=== PATIENT | female | born 1990 | race Caucasian/White ===

== ENCOUNTER 2016-11-21 09:15 | Inpatient (IN) ==
[2016-11-21] MEDS ORDERED: PEPCID IV PRN (09:24)
[2016-11-21] MEDS ORDERED: KEFZOL 1 GM/D5W 1 GM/50 ML IVPB IV PRN (09:24)
[2016-11-21] MEDS ORDERED: AMPICILLIN 2 GM/NS 2 GM/100 ML IVPB IV ONE (09:24)
[2016-11-21] MEDS ORDERED: ZOFRAN IV PRN (09:24)
[2016-11-21] MEDS ORDERED: PEPCID PO ONE (09:24)
[2016-11-21] MEDS ORDERED: REGLAN PO ONE (09:24)
[2016-11-21] MEDS ORDERED: PEPCID PO PRN (09:24)
[2016-11-21] MEDS ORDERED: PITOCIN 30 UNITS/LR 30 UNITS/500 ML IV.SOLN IV SCH (09:24)
[2016-11-21] MEDS ORDERED: STADOL IV PRN ×3 (09:24→19:27)
[2016-11-21] MEDS ORDERED: SODIUM CHLORIDE 0.9% INJ SCH (09:30)
[2016-11-21] MEDS: LR 1,000 ML IV SCH (09:45)
[2016-11-21 10:03] LABS: MANUAL DIFF NEEDED? NO
[2016-11-21 10:04] LABS: BASO% 0.2 % (0.0-0.8); EOS# 0.01 X1000 (0.0-0.7); EOS% 0.1 % (0.0-10.0); HEMATOCRIT 32.9 % (37.0-47.0); HEMOGLOBIN 11.1 g/dL (12.0-16.0); IMM GRAN% 0.8 % (0.0-0.5); LYMPH# 1.42 X1000 (1.2-3.4); LYMPH% 11.5 % (20.5-51.1); MCH 32.4 PG (27-31); MCHC 33.7 g/dL (33-37); MCV 95.9 FL (81-99); MONO# 0.74 X1000 (0.11-0.59); NEUT% 81.4 % (42.2-75.2); PLT 260 X1000 (130-400); RBC 3.43 XMIL (4.2-5.4)
[2016-11-21] MEDS: TYLENOL PO PRN ×3 (10:26→20:13)
[2016-11-21] MEDS ORDERED: VALIUM IV PRN (10:40)
[2016-11-21] MEDS ORDERED: KEPPRA PO SCH (10:45)
[2016-11-21] MEDS: LAMICTAL PO SCH ×2 (11:43→21:33)
[2016-11-21] MEDS: VALTREX PO SCH ×2 (11:44→21:33)
[2016-11-21] MEDS: KEPPRA 1,000 MG/NS 1,000 MG/100 ML IVPB IV SCH ×2 (11:57→23:33)
[2016-11-21 12:00] LABS: AGAP 18; ALBUMIN 3.2 g/dL (3.5-5.0); ALKALINE PHOSPHATASE 133 U/L (32-104); BUN 8 mg/dL (8-22); CALCIUM 8.5 mg/dL (8.8-10.2); CHLORIDE 100 mmol/L (98-107); COSMO 267; GOT 20 U/L (10-30); GPT 10 U/L (10-36); POTASSIUM 3.5 mmol/L (3.5-5.1); SODIUM 134 mmol/L (136-145); TCO2 16 mmol/L (25-35); TOTAL PROTEIN 6.6 g/dL (6.3-8.3)
[2016-11-21] MEDS: AMPICILLIN 1 GM/NS 1 GM/50 ML IVPB IV SCH ×2 (17:00→21:33)
[2016-11-21] MEDS ORDERED: AMBIEN PO PRN (19:27)
[2016-11-21] MEDS ORDERED: BRETHINE SUBQ PRN (19:27)
[2016-11-21] MEDS ORDERED: CYTOTEC PO ONE (23:00)
[2016-11-22 00:15] LABS: URINE SOURCE VOIDED
[2016-11-22 00:32] LABS: BILIRUBIN URINE NEGATIVE (NEGATIVE); BLOOD URINE NEGATIVE (NEGATIVE); CLARITY CLEAR (CLEAR); COLOR YELLOW; GLUCOSE URINE NEGATIVE (NEGATIVE); LEUKOCYTES URINE 1+ (NEGATIVE); NITRITE URINE NEGATIVE (NEGATIVE); PROTEIN URINE NEGATIVE (NEGATIVE); SP GRAVITY URINE 1.005; UR AMPHETAMINES QUAL NONE DETECTED (NONE DETECT); UR BARBITUATES QUAL NONE DETECTED (NONE DETECT); UR BENZODIAZEPIN QUAL PRESUMPTIVE POSITIVE (NONE DETECT); UR CANNABINOIDS QUAL NONE DETECTED (NONE DETECT); UR COCAINE QUAL NONE DETECTED (NONE DETECT); UR MDMA QUAL NONE DETECTED (NONE DETECT); UR METHADONE QUAL NONE DETECTED (NONE DETECT); UR METHAMPHETAMINE QUAL NONE DETECTED (NONE DETECT); UR OPIATES QUAL NONE DETECTED (NONE DETECT); UR OXYCODONE QUAL NONE DETECTED (NONE DETECT); UR PCP QUAL NONE DETECTED (NONE DETECT); UR TCA QUAL NONE DETECTED (NONE DETECT); UROBILINOGEN URINE NORMAL
[2016-11-22] MEDS: AMPICILLIN 1 GM/NS 1 GM/50 ML IVPB IV SCH ×3 (00:54→09:00)
[2016-11-22] MEDS ORDERED: CYTOTEC PO SCH (03:00)
[2016-11-22] MEDS: TYLENOL PO PRN (06:21)
[2016-11-22] MEDS: LR 1,000 ML IV SCH (08:00)
[2016-11-22] MEDS: LAMICTAL PO SCH ×2 (09:47→20:57)
[2016-11-22] MEDS: VALTREX PO SCH (09:47)
[2016-11-22] MEDS ORDERED: FENTANYL-BUPIV-NS 2 MCG-0.1% 200 ML EPIDURAL PRN (10:21)
[2016-11-22] MEDS ORDERED: NAROPIN 0.2% ONE (12:06)
[2016-11-22] MEDS: KEPPRA 1,000 MG/NS 1,000 MG/100 ML IVPB IV SCH (12:56)
[2016-11-22] MEDS ORDERED: BENADRYL IV PRN (13:57)
[2016-11-22] MEDS ORDERED: BOOSTRIX VACCINE IM ONE (13:57)
[2016-11-22] MEDS ORDERED: MINERAL OIL PO PRN (13:57)
[2016-11-22] MEDS ORDERED: HYDROXYZINE IM PRN (13:57)
[2016-11-22] MEDS ORDERED: XYLOCAINE-MPF 1% INJ PRN (13:57)
[2016-11-22] MEDS ORDERED: PITOCIN 30 UNITS/LR 30 UNITS/500 ML IV.SOLN IV ONE (13:57)
[2016-11-22] MEDS ORDERED: PITOCIN 20 UNITS/LR 20 UNITS/1,000 ML IV.SOLN IV SCH (13:57)
[2016-11-22] MEDS ORDERED: PITOCIN IM PRN (13:57)
[2016-11-22] MEDS ORDERED: HYDROXYZINE PO PRN (13:57)
[2016-11-22] MEDS ORDERED: CYTOTEC PO PRN (13:57)
[2016-11-22] MEDS ORDERED: BENADRYL PO PRN (13:57)
[2016-11-22] MEDS ORDERED: M-M-R II VACCINE SUBQ ONE (13:57)
[2016-11-22] MEDS ORDERED: PERI MEDS (DERMOPLAST/NUPERCAINAL/TUCKS) MISC PRN (13:57)
--- NOTE | 2016-11-22 14:35 | OPERATIVE NOTE ---
PROCEDURE DATE: 11/22/2016 PREDELIVERY DIAGNOSES: 1. Intrauterine at 38 and 5. 2. Seizure disorder. 3. History of herpes simplex virus. 4. History of chlamydia during . 5. 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 6. Seizure disorder. 7. For labor augmentation. POST DELIVERY DIAGNOSES: 1. Intrauterine at 38 and 5. 2. Seizure disorder. 3. History of herpes simplex virus. 4. History of chlamydia during . 5. 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 6. Seizure disorder. 7. For labor augmentation. 8. Nuchal cord x1. PROCEDURE: Vaginal delivery. PHYSICIAN: Bobby. ANESTHESIA: Epidural with Dr. Tracey. FINDINGS: Viable female infant. Do not have weight or Apgars at this time. ESTIMATED BLOOD LOSS: 100 mL. COMPLICATIONS: The no lacerations or tears. COUNTS: All counts correct. Ms. Rinaldi is a 26-year-old at 38 and 5, with the above diagnoses, who was sent upstairs for labor augmentation after having seizures in the office. She was continued on her antiseizure medication and did well overnight with a dose of Cytotec. She is also GBS positive so she was started on antibiotics. This morning she was artificially ruptured, placed on Pitocin, received epidural anesthesia and made good progress until complete. Began pushing, soon after crowned, at which point the bed was broken down and she was prepped and draped. It should be noted she had no vaginal lesions of herpes noted. She pushes quickly, delivers a viable male , occiput anterior over an intact perineum. Once head delivered, shoulders and rest of the body delivered without difficulty and infant was placed on mother's abdomen. Cord was doubly clamped and cut and care of infant was taken over by nursery personnel. Cord blood was obtained and it was noted to be a 3-vessel cord. Then gentle traction on the cord resulted in delivery of the placenta after approximately 2 minutes. It was inspected and found to be intact and it was discarded. Inspection of the perineum and vagina did not reveal any lacerations, tears. There was no foreign material or blood clots. All counts were correct. Estimated blood loss 100 mL. Expect routine . cc: MD Cesar Chen MD
[2016-11-22] MEDS: NORCO-10 PO PRN (16:37)
[2016-11-22] MEDS: MOTRIN PO PRN ×2 (16:38→23:51)
[2016-11-22] MEDS: NORCO-5 PO PRN ×2 (20:12→23:51)
[2016-11-22] MEDS: PERICOLACE PO SCH (20:57)
[2016-11-22] MEDS: KEPPRA PO SCH (20:58)
[2016-11-23] MEDS: AMBIEN PO PRN (00:47)
[2016-11-23 06:55] LABS: MANUAL DIFF NEEDED? NO
[2016-11-23 08:04] LABS: BASO% 0.2 % (0.0-0.8); EOS# 0.02 X1000 (0.0-0.7); EOS% 0.2 % (0.0-10.0); HEMOGLOBIN 8.4 g/dL (12.0-16.0); IMM GRAN# 0.05 X1000 (0.0-0.04); IMM GRAN% 0.5 % (0.0-0.5); LYMPH# 2.38 X1000 (1.2-3.4); LYMPH% 22.8 % (20.5-51.1); MCH 31.9 PG (27-31); MCHC 32.3 g/dL (33-37); MCV 98.9 FL (81-99); MONO# 0.72 X1000 (0.11-0.59); MONO% 6.9 % (1.7-9.3); MPV 11.5 FL (7.4-10.4); NEUT% 69.4 % (42.2-75.2); PLT 190 X1000 (130-400); RBC 2.63 XMIL (4.2-5.4)
[2016-11-23] MEDS: PRECARE PO SCH (09:39)
[2016-11-23] MEDS: FOLIC ACID PO SCH (09:39)
[2016-11-23] MEDS: KEPPRA PO SCH ×2 (09:39→20:57)
[2016-11-23] MEDS: LAMICTAL PO SCH ×2 (09:41→20:57)
[2016-11-23] MEDS: MOTRIN PO PRN (19:13)
[2016-11-23] MEDS: NORCO-10 PO PRN (19:13)
[2016-11-23] MEDS: PERICOLACE PO SCH (20:57)
[2016-11-24] MEDS: NORCO-5 PO PRN ×2 (00:04→06:44)
[2016-11-24] MEDS: AMBIEN PO PRN (01:06)
[2016-11-24] MEDS: MOTRIN PO PRN (06:43)
[2016-11-24] MEDS ORDERED: DEPO-PROVERA IM ONE (06:49)
[2016-11-24] MEDS: LAMICTAL PO SCH (08:55)
[2016-11-24] MEDS: PRECARE PO SCH (08:56)
[2016-11-24] MEDS: FOLIC ACID PO SCH (08:56)
[2016-11-24] MEDS: KEPPRA PO SCH (08:56)
[2016-11-24 09:05] VITALS: BP 124/82
== END 2016-11-24 10:40 | disposition home or self-care (01) ==
LOC: P.LD 09:15 → P.WC 11-22 16:38
PROVIDERS: ADMIT Obstetrics & Gynecology; ATTEND Obstetrics & Gynecology